=== PATIENT | male | born 1970 | race African-American/Black ===

== ENCOUNTER 2016-09-19 23:42 | Emergency (ER) | payer SELFPAY ==
[2016-09-20] MEDS ORDERED: LIDOCAINE 0.5%/EPINEPHRINE INJ 50 ML VIAL INJ ONE (00:49)
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
[2016-09-20 02:47] VITALS: BP 145/92
== END 2016-09-20 02:30 | disposition home or self-care (01) ==
LOC: ER 23:42
PROC: 0JQH0ZZ Repair Left Lower Arm Subcutaneous Tissue and Fascia, Open Approach (ICD-10-PCS; principal; 2016-09-19)
PROC: 0HQ0XZZ Repair Scalp Skin, External Approach (ICD-10-PCS; 2016-09-19)
DX: S51.812A Laceration without foreign body of left forearm, initial encounter (principal); S01.01XA Laceration without foreign body of scalp, initial encounter; W25.XXXA Contact with sharp glass, initial encounter; F10.129 Alcohol abuse with intoxication, unspecified; F17.200 Nicotine dependence, unspecified, uncomplicated; Z88.5 Allergy status to narcotic agent; Z88.2 Allergy status to sulfonamides
CPT/HCPCS: 99283; 12032; 12002; J3490

== ENCOUNTER 2016-09-29 15:08 | Emergency (ER) | payer SELFPAY ==
[2016-09-29 15:29] VITALS: BP 129/76
--- NOTE | 2016-09-29 15:41 | ER Document Report ---
HPI - HPI Patient complains to provider of: SUTURE REMOVAL Onset: Last week Quality of pain: Other - itchy around stitches Severity: Mild Pain Level: 1 Context: Patient states he cut his left arm in 2 places, and has a cut to the back of his head that was sutured 10 days ago. He is here for suture removal and denies any problems with wounds. Associated Symptoms: None Exacerbated by: Denies Relieved by: Denies Similar symptoms previously: Yes Recently seen / treated by doctor: Yes - ROS ROS below otherwise negative: Yes Systems Reviewed and Negative: Yes All other systems reviewed and negative - CONSTITUTIONAL Constitutional: DENIES: Fever - EENT EENT: DENIES: Congestion - NEURO Neurology: DENIES: Headache - CARDIOVASCULAR Cardiovascular: DENIES: Chest pain - RESPIRATORY Respiratory: DENIES: Trouble Breathing - GASTROINTESTINAL Gastrointestinal: DENIES: Abdominal Pain - URINARY Urinary: DENIES: Dysuria - MUSCULOSKELETAL Musculoskeletal: REPORTS: Extremity pain - itchy around stitches - DERM Skin Color: Normal Past Medical History - General Information source: Patient - Social History Smoking Status: Current Every Day Smoker Frequency of alcohol use: None Drug Abuse: None Lives with: Family Family History: DM, Hypertension, Malignancy Patient has suicidal ideation: No Patient has homicidal ideation: No Neurological Medical History: Reports: Hx Migraine Past Surgical History: Reports: Hx Orthopedic Surgery - L foot - Immunizations Immunizations up to date: Yes Hx Diphtheria, Pertussis, Tetanus Vaccination: Yes Vertical Provider Document - CONSTITUTIONAL Agree With Documented VS: Yes Exam Limitations: No Limitations General Appearance: WD/WN, No Apparent Distress - INFECTION CONTROL TRAVEL OUTSIDE OF THE [place] IN LAST 30 DAYS: No - HEENT HEENT: Normocephalic Notes: Sutures to right occipital area intact, no signs and symptoms of infection. - RESPIRATORY Respiratory: Breath Sounds Normal, No Respiratory Distress O2 Sat by Pulse Oximetry: 97 - CARDIOVASCULAR Cardiovascular: Regular Rate, Regular Rhythm - MUSCULOSKELETAL/EXTREMETIES Musculoskeletal/Extremeties: ADNIEL DEL [place]ARIO - NEURO Level of Consciousness: Awake, Alert, Appropriate - DERM Integumentary: Warm, Dry, Laceration - Healed lacerations noted to left forearm. Course - Re-evaluation Re-evalutation: 09/29/16 17:07 suture removed without difficulty, pt tolerated well. No s/s of infection noted. - Vital Signs Vital signs: Temp Pulse Resp BP Pulse Ox 99.1 F 83 18 129/76 H 97 09/29/16 15:25 09/29/16 15:25 09/29/16 15:25 09/29/16 15:25 09/29/16 15:25 Discharge - Discharge Clinical Impression: Visit for suture removal Condition: Good Disposition: HOME, SELF-CARE Additional Instructions: Keep area clean and dry Follow-up with your doctor or return if any problems
== END 2016-09-29 16:14 | disposition home or self-care (01) ==
LOC: ER 15:08
DX: S51.812D Laceration without foreign body of left forearm, subsequent encounter (principal); S01.91XD Laceration without foreign body of unspecified part of head, subsequent encounter; X58.XXXD Exposure to other specified factors, subsequent encounter; L29.8 Other pruritus